=== PATIENT | male | born 1950 | race Caucasian/White ===

== ENCOUNTER 2016-06-09 13:38 | Inpatient (IN) | payer OTHER ==
[~2016-06-09] VITALS: Ht 188 cm; Wt 126.8 kg
[2016-06-09 14:00] LABS: EOSINOPHIL (%) 0 % (0-5); HEMATOCRIT 49.6 % (38.0-50.0); IMMATURE GRANULOCYTE (%) 0.3 % (0.0-0.7); IMMATURE GRANULOCYTE COUNT 0.1 K/uL; INSTRUMENT ABS NEUTROPHIL CT 11.7 K/uL; LYMPHOCYTE COUNT 1.7 K/uL (1.0-2.8); MCHC 33.7 G/DL (30.0-36.0); MEAN PLAT.VOLUME 10.6 uM^3 (9.0-12.4); MONOCYTE (%) 6.5 % (3-12); MONOCYTE COUNT 0.9 K/uL (0-0.8); NEUTROPHIL COUNT 11.7 K/uL (1.8-6.4); PLATELET COUNT 292 K/uL (156-360); RBC DIS.WIDTH-CV 11.9 % (11.8-14.6); RBC DIS.WIDTH-SD 41.4 % (39-53); RED BLOOD COUNT 5.22 M/uL (4.00-5.50); WHITE BLOOD COUNT 14.5 K/uL (4.1-10.2)
[2016-06-09 14:10] LABS: AMYLASE 36 IU/L (1-118)
[2016-06-09 14:12] LABS: CHLORIDE 106 mEq/L (99-109); POTASSIUM 4.6 mEq/L (3.7-5.4); PROTHROMBIN TIME 10.6 (9.2-11.2); PTT 27.3 (25-32); SODIUM 138 mEq/L (136-147)
[2016-06-09 14:13] LABS: GLUCOSE 155 mg/dL (70-99)
[2016-06-09 14:15] LABS: ANION GAP 11 MEQ/L (2-14); SERUM ETHYL ALCOHOL < 10 mg/dL
[2016-06-09] MEDS ORDERED: LISINOPRIL20 MG PO (14:15)
[2016-06-09] MEDS ORDERED: ROSUVASTATIN CA20 MG PO (14:16)
[2016-06-09] MEDS ORDERED: EZETIMIBE10 MG PO (14:16)
[2016-06-09] MEDS ORDERED: METOPROLOL SUC100 MG PO (14:16)
[2016-06-09 14:17] LABS: GFR ESTIMATE (CALCULATED) > 59 mL/min/
[2016-06-09] MEDS ORDERED: ANTACID MAXIMU355 ML PO (14:17)
[2016-06-09 14:18] LABS: UREA NITROGEN (BUN) 20 mg/dL (9-23)
[2016-06-09 14:19] LABS: LIPASE 17 U/L (1.0-51.0)
[2016-06-09 14:26] LABS: TROP-I INTERPRETATION POSITIVE; TROPONIN-I 3.97 ng/mL (0.0-0.30)
[2016-06-09 16:00] VITALS: BP 106/68; BP 134/79
[2016-06-09 17:23] LABS: METH RESISTANT S AUREUS PCR NEGATIVE (NEGATIVE)
[2016-06-09 17:49] LABS: PROBE CHECK PASS; SPECIMEN PROCESSING CONTROL PASS
[2016-06-09 18:10] VITALS: BP 114/58
[2016-06-09 19:29] LABS: ADD MIUA? YES; BILIRUBIN NEGATIVE; BLOOD NEGATIVE; COLOR YELLOW ((YELLOW)); GLUCOSE (STRIP) NEGATIVE; KETONES 5; LEUKOCYTES NEGATIVE; NITRITE NEGATIVE; PROTEIN (STRIP) 30; UROBILINOGEN 0.2 MG/DL (0.2-1.0)
[2016-06-09 22:22] LABS: BACTERIA NONE SEEN /HPF; EPITHELIAL CELLS RARE /HPF; MUCUS TRACE /LPF; UCUL ADDED? NO; WHITE BLOOD CELLS 0-5 /HPF (0-5)
== END 2016-06-09 20:31 | disposition short-term general hospital (02) | DRG 271 ==
LOC: EME 13:38 → 2SOUTH 14:08 → 4WEST 15:51
PROVIDERS: Emergency Medicine; Internal Medicine Cardiovascular Disease; Internal Medicine Critical Care Medicine
PROC: 5A02210 Assistance with Cardiac Output using Balloon Pump, Continuous (ICD-10-PCS; principal; 2016-06-09)
PROC: 4A023N7 Measurement of Cardiac Sampling and Pressure, Left Heart, Percutaneous Approach (ICD-10-PCS; 2016-06-09)
PROC: B2151ZZ Fluoroscopy of Left Heart using Low Osmolar Contrast (ICD-10-PCS; 2016-06-09)
PROC: B2111ZZ Fluoroscopy of Multiple Coronary Arteries using Low Osmolar Contrast (ICD-10-PCS; 2016-06-09)
DX: I21.3 ST elevation (STEMI) myocardial infarction of unspecified site (principal); I50.1 Left ventricular failure, unspecified; I10 Essential (primary) hypertension; E78.5 Hyperlipidemia, unspecified; F17.200 Nicotine dependence, unspecified, uncomplicated; R73.9 Hyperglycemia, unspecified; D72.829 Elevated white blood cell count, unspecified; I25.10 Atherosclerotic heart disease of native coronary artery without angina pectoris; I25.82 Chronic total occlusion of coronary artery
CPT/HCPCS: 71010; 80048; 81003; 82150; 83690; 84484; 85025; 85027; 85610; 85730; 86850; 86900; 86901; 87641; 93005; 99281; 99285; C1769; C1887; C1894; G0480; J0461; J1644; J2250; J3010; J7030; J7050